=== PATIENT | female | born 1985 ===

== ENCOUNTER 2018-05-14 09:17 | Outpatient (CLI) | payer OTHER ==
[~2018-05-14] VITALS: Ht 165.1 cm; Wt 63.5 kg
== END 2018-05-14 09:35 | disposition home or self-care (01) ==
LOC: OFIC 805 09:17
DX: Q79.4 Prune belly syndrome (principal); M54.2 Cervicalgia; F45.8 Other somatoform disorders; J39.2 Other diseases of pharynx

== ENCOUNTER 2018-06-12 10:09 | Outpatient (CLI) | payer OTHER ==
[~2018-06-12] VITALS: Ht 152.4 cm; Wt 63.5 kg
== END 2018-06-12 10:20 | disposition home or self-care (01) ==
LOC: OFIC 805 10:09
DX: M54.2 Cervicalgia (principal); R47.01 Aphasia; Q79.4 Prune belly syndrome; R13.19 Other dysphagia

== ENCOUNTER 2018-10-29 14:38 | Outpatient (CLI) | payer OTHER ==
[~2018-10-29] VITALS: Ht 152.4 cm; Wt 63.5 kg
== END 2018-10-29 14:50 | disposition home or self-care (01) ==
LOC: OFIC 805 14:38
DX: Q79.4 Prune belly syndrome (principal); M54.2 Cervicalgia; F45.8 Other somatoform disorders; K20.8 Other esophagitis